=== PATIENT | female | born 1990 | race Caucasian/White ===

== ENCOUNTER 2017-04-03 13:04 | Emergency (ER) | payer BC, OTHER ==
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
[2017-04-03] MEDS ORDERED: IBUPROFEN 800 MG TABLET PO ONE (15:07)
[2017-04-03 15:47] VITALS: BP 139/68
== END 2017-04-03 15:26 | disposition home or self-care (01) ==
LOC: ER 13:04
DX: H92.02 Otalgia, left ear (principal); Z77.122 Contact with and (suspected) exposure to noise; F17.200 Nicotine dependence, unspecified, uncomplicated
CPT/HCPCS: 99282